=== PATIENT | male | born 1995 | race American Indian/Alaskan Native ===

== ENCOUNTER 2020-05-14 09:28 | Emergency (ER) | payer SELFPAY ==
[2020-05-14 09:37] VITALS: BP 145/81
--- NOTE | 2020-05-14 12:57 | Emergency Department Report ---
Chief Complaint: Dental/Oral Stated Complaint: TOOTHACHE Time Seen by Provider: 05/14/20 12:33 - HPI History of Present Illness: Patient is a 25-year-old male who presents emergency room with complaints of right upper dental pain that began a few months ago. He states that he has 2 cracked teeth that have been there for a while. He states that he has discomfort with cold liquids, warm liquids, chewing in that area. He denies any fever, facial swelling, vomiting, chills, difficulty swallowing. He states that he has not seen a dentist in approximately 3 years. He denies any past medical history or allergies to medications. vss on exam: Non toxic appearing, no acute distress atraumatic, normocephalic normal appearance of the eyes, EOMI, no periorbital edema or ecchymosis moist mucus membranes, there is a mostly missing tooth present to the right upper molar with dental decay, there is a partially missing tooth with dental decay present to the left upper molar, no induration or edema of the gumline, no facial edema, uvula is midline no uvular edema or deviation, no trismus, no muffled voice, no submandibular edema no respiratory distress, no accessory muscle use A&O x4, no focal neuro deficit skin is warm, dry, intact Patient is presenting with dental caries and dentalgia He has no signs of dental abscess, infected dental caries, gingivitis, Ludwigs, facial abscess at this time Patient will be referred to a dentist Discussed the importance of dental follow-up with patient Patient given multiple community resources Discussed strict return precautions with patient Medical screening examination performed and there is no threat to life or limb at this time - Exam Vital Signs: Vital Signs 05/14/20 09:36 Temperature 97.9 F Pulse Rate 81 Respiratory 16 Rate Blood Pressure 145/81 [Right] O2 Sat by Pulse 98 Oximetry MSE screening note: Focused history and physical exam performed. ED Disposition for MSE Clinical Impression: Dentalgia, Dental caries Disposition: MED SCREENING EXAM-LEFT Is pt being admited?: No Does the pt Need Aspirin: No Condition: Stable Instructions: Dental Caries (ED), Toothache (ED) Additional Instructions: May alternate Tylenol or ibuprofen as needed for discomfort. May gargle with warm salt water. May use Orajel [id number]. Follow-up with a dentist. It is very important that you follow-up. Return to emergency room for any new or worsening symptoms. Referrals: PRIMARY CARE,MD [Primary Care Provider] - 2-3 Days [facility] [Outside] - 2-3 Days [facility] [Outside] - 2-3 Days Forms: Work/School Release Form(ED) Time of Disposition: 12:56 Print Language: DANISH
== END 2020-05-14 13:06 | disposition left against medical advice (07) ==
LOC: ED 09:28
DX: K08.89 Other specified disorders of teeth and supporting structures (principal); Z53.21 Procedure and treatment not carried out due to patient leaving prior to being seen by health care provider